=== PATIENT | female | born 1955 | race African-American/Black ===

== ENCOUNTER 2017-02-06 11:29 | Emergency (ER) | payer BC ==
[~2017-02-06] VITALS: Ht 162.6 cm; Wt 87.0 kg
[~2017-02-06 11:29] MED LIST: CIPRO XR500 MG PO; FLAGYL500 MG PO; LOPRESSOR50 MG PO; LOVASTATIN20 MG PO; METFORMIN500 MG PO; METO50TA52 PO; METOPROLOL TART50 MG PO
[2017-02-06 14:31] VITALS: BP 140/80
== END 2017-02-06 14:30 | disposition home or self-care (01) | DRG 605 ==
LOC: ED 11:29
PROC: 0HQ1XZZ Repair Face Skin, External Approach (ICD-10-PCS; principal; 2017-02-06)
DX: S01.81XA Laceration without foreign body of other part of head, initial encounter (principal); W01.198A Fall on same level from slipping, tripping and stumbling with subsequent striking against other object, initial encounter; Y93.01 Activity, walking, marching and hiking; Y92.009 Unspecified place in unspecified non-institutional (private) residence as the place of occurrence of the external cause

== ENCOUNTER 2017-02-14 10:06 | Emergency (ER) | payer BC ==
[~2017-02-14] VITALS: Ht 162.6 cm; Wt 86.2 kg
[2017-02-14 10:35] VITALS: BP 135/69
== END 2017-02-14 10:35 | disposition home or self-care (01) | DRG 950 ==
LOC: ED 10:06
DX: S01.81XD Laceration without foreign body of other part of head, subsequent encounter (principal); I10 Essential (primary) hypertension; E11.9 Type 2 diabetes mellitus without complications; X58.XXXD Exposure to other specified factors, subsequent encounter

== ENCOUNTER 2019-10-25 07:53 | Emergency (ER) | payer MEDICARE ==
[2019-10-25] MEDS ORDERED: ULTRAM50 M1 PO (08:44)
[2019-10-25 08:56] VITALS: BP 143/93
== END 2019-10-25 09:00 | disposition home or self-care (01) ==
LOC: ED 07:53
DX: M76.61 Achilles tendinitis, right leg (principal); E11.9 Type 2 diabetes mellitus without complications; I10 Essential (primary) hypertension; M10.9 Gout, unspecified

== ENCOUNTER 2022-10-16 06:46 | Day surgery (SDC) | payer MEDICARE ==
[~2022-10-16] VITALS: Ht 162.6 cm; Wt 75.7 kg
[~2022-10-16 06:46] MED LIST changes: +ATORVASTATIN CA10 MG PO; +B121000 MC1 PO; +JARDIANCE25 MG PO; +METFORMIN500 M2 PO; +ULTRAM50 M1 PO; +[UNRECOGNIZED DRUG - OTHER] PO
[2022-10-16 08:45] VITALS: BP 146/69
== END 2022-10-16 09:00 | disposition home or self-care (01) ==
LOC: ENDO 06:46
PROVIDERS: ATTEND Internal Medicine Gastroenterology
PROC: 0DJD8ZZ Inspection of Lower Intestinal Tract, Via Natural or Artificial Opening Endoscopic (ICD-10-PCS; principal; 2022-10-16)
DX: Z12.11 Encounter for screening for malignant neoplasm of colon (principal); K57.30 Diverticulosis of large intestine without perforation or abscess without bleeding; K64.8 Other hemorrhoids; I12.9 Hypertensive chronic kidney disease with stage 1 through stage 4 chronic kidney disease, or unspecified chronic kidney disease; E11.22 Type 2 diabetes mellitus with diabetic chronic kidney disease; N18.9 Chronic kidney disease, unspecified; E78.2 Mixed hyperlipidemia; Z79.84 Long term (current) use of oral hypoglycemic drugs